=== PATIENT | male | born 1955 | race African-American/Black ===

== ENCOUNTER 2019-02-01 12:47 | Observation (INO) | payer MEDICARE, OTHER ==
[2019-02-01 13:41] LABS: ADD MAN DIFF? NO
[2019-02-01 13:43] LABS: WHITE BLOOD COUNT 10.5 10^3/ul (4.8-10.8)
[2019-02-01 13:43] LABS: BASOPHILS % 0.3 % (0.0-2.0); EOSINOPHILS # 0.1 10^3/ul (0.0-0.5); EOSINOPHILS % 0.6 % (0.0-7.0); HEMATOCRIT 32.3 % (42.0-52.0); HEMOGLOBIN 10.4 g/dl (14.0-18.0); LYMPHOCYTES # 0.6 10^3/ul (0.8-2.9); LYMPHOCYTES % 5.7 % (15.0-51.0); MEAN CORPUSCULAR HEMOGLOBIN 29.7 pg (29.0-33.0); MEAN CORPUSCULAR HGB CONC 32.2 g/dl (32.0-37.0); MEAN CORPUSCULAR VOLUME 92.3 fl (82.0-101.0); MEAN PLATELET VOLUME 10.1 fl (7.4-10.4); MONOCYTE # 0.5 10^3/ul (0.3-0.9); MONOCYTES % 4.5 % (0.0-11.0); NEUTROPHIL # 9.3 10^3/ul (1.6-7.5); NEUTROPHILS % 88.4 % (39.0-77.0); PLATELET COUNT 311 10^3/UL (140-415); RED CELL DISTRIBUTION WIDTH 14.8 % (11.5-14.5)
[2019-02-01 14:02] LABS: ALANINE AMINOTRANSFERASE 8 IU/L (13-69); ALBUMIN 4.3 g/dl (3.3-4.9); ALBUMIN/GLOBULIN RATIO 1.22; ALKALINE PHOSPHATASE 174 IU/L (42-121); ANION GAP 17 (5-13); ASPARTATE AMINO TRANSFERASE 17 IU/L (15-46); BLOOD UREA NITROGEN 67 mg/dl (7-20); CARBON DIOXIDE 23 mmol/L (21-31); CHLORIDE 100 mmol/L (97-110); CREATININE 11.18 mg/dl (0.61-1.24); Estimated GFR 6 mL/min (>60); GLUCOSE 84 mg/dl (70-220); INR 1.12; PROTIME 14.5 Sec (11.9-14.9); PT RATIO 1.1; SODIUM 140 mmol/L (135-144); TOTAL PROTEIN 7.8 g/dl (6.1-8.1)
[2019-02-01 14:03] LABS: PARTIAL THROMBOPLASTIN TIME 47.9 Sec (23.0-35.0)
[2019-02-01 14:13] LABS: TROPONIN-I < 0.012 ng/ml (0.000-0.120)
[2019-02-01] MEDS: LABETALOL HCL 20MG INJ IV (15:01)
[2019-02-01 17:20] LABS: LACTIC ACID 1.1 mmol/L (0.5-2.0)
[2019-02-01] MEDS ORDERED: DEXTROSE 50% 50 ML SYRINGE (17:24)
[2019-02-01] MEDS: DEXTROSE 50% 50 ML SYRINGE IV (17:43)
[2019-02-01] MEDS ORDERED: ONDANSETRON 4 MG INJ IV ×2 (18:00→18:30)
[2019-02-01] MEDS ORDERED: ACETAMINOPHEN 325 MG TAB PO ×3 (18:00→18:30)
[2019-02-01] MEDS ORDERED: ENALAPRIL 20 MG TAB PO (18:30)
[2019-02-01] MEDS ORDERED: ZOLPIDEM 5 MG TAB PO (18:30)
[2019-02-01] MEDS ORDERED: NACL 0.9% 3 ML SYG IV (18:30)
[2019-02-01] MEDS: BETHANECHOL 25 MG TAB PO (21:00)
[2019-02-01] MEDS: SUCRALFATE 1 GM TAB PO (21:47)
[2019-02-01] MEDS: FOLIC ACID 1 MG TAB PO (21:47)
[2019-02-01] MEDS: PANTOPRAZOLE (EC) 40 MG TAB PO (21:47)
[2019-02-02] MEDS: morphine LIQ (10 MG/5 ML) CUP PO (00:19)
[2019-02-02 08:34] LABS: ADD MAN DIFF? NO
[2019-02-02] MEDS: MULTIVIT/CA CARB/B CMPLX/FA TAB PO ×2 (08:47→09:00)
[2019-02-02] MEDS: FOLIC ACID 1 MG TAB PO ×3 (08:47→23:55)
[2019-02-02 08:48] LABS: WHITE BLOOD COUNT 7.2 10^3/ul (4.8-10.8)
[2019-02-02 08:48] LABS: BASOPHILS % 0.4 % (0.0-2.0); EOSINOPHILS # 0.1 10^3/ul (0.0-0.5); EOSINOPHILS % 1.1 % (0.0-7.0); HEMATOCRIT 26.9 % (42.0-52.0); HEMOGLOBIN 8.6 g/dl (14.0-18.0); LYMPHOCYTES # 1.2 10^3/ul (0.8-2.9); LYMPHOCYTES % 16.7 % (15.0-51.0); MEAN CORPUSCULAR HEMOGLOBIN 29.1 pg (29.0-33.0); MEAN CORPUSCULAR VOLUME 90.9 fl (82.0-101.0); MEAN PLATELET VOLUME 10.7 fl (7.4-10.4); MONOCYTE # 0.7 10^3/ul (0.3-0.9); MONOCYTES % 9.4 % (0.0-11.0); NEUTROPHIL # 5.2 10^3/ul (1.6-7.5); NEUTROPHILS % 71.7 % (39.0-77.0); PLATELET COUNT 264 10^3/UL (140-415); RED BLOOD COUNT 2.96 10^6/ul (4.70-6.10); RED CELL DISTRIBUTION WIDTH 14.6 % (11.5-14.5)
[2019-02-02] MEDS: SUCRALFATE 1 GM TAB PO ×5 (08:48→23:54)
[2019-02-02] MEDS: PANTOPRAZOLE (EC) 40 MG TAB PO ×3 (08:48→23:54)
[2019-02-02] MEDS: DOCUSATE SODIUM 100 MG CAP PO ×2 (08:48→09:00)
[2019-02-02] MEDS: METOPROLOL 25 MG TAB PO (08:48)
[2019-02-02 08:52] LABS: HEMOGLOBIN A1C 5.1 % (0-5.9)
[2019-02-02] MEDS: BETHANECHOL 25 MG TAB PO ×4 (09:00→23:54)
[2019-02-02 09:21] LABS: ALANINE AMINOTRANSFERASE 17 IU/L (13-69); ALBUMIN 3.7 g/dl (3.3-4.9); ALBUMIN/GLOBULIN RATIO 1.32; ALKALINE PHOSPHATASE 129 IU/L (42-121); ANION GAP 18 (5-13); ASPARTATE AMINO TRANSFERASE 37 IU/L (15-46); BILIRUBIN,INDIRECT 0.2 mg/dl (0-1.1); BILIRUBIN,TOTAL 0.2 mg/dl (0.2-1.3); BLOOD UREA NITROGEN 74 mg/dl (7-20); CALCIUM 8.1 mg/dl (8.4-10.2); CARBON DIOXIDE 23 mmol/L (21-31); CHLORIDE 98 mmol/L (97-110); CREATININE 11.48 mg/dl (0.61-1.24); Estimated GFR 5 mL/min (>60); MAGNESIUM 2.2 mg/dl (1.7-2.5); PHOSPHORUS 5.5 mg/dl (2.5-4.9); POTASSIUM 5.3 mmol/L (3.5-5.1); SODIUM 139 mmol/L (135-144); TOTAL PROTEIN 6.5 g/dl (6.1-8.1)
[2019-02-02 09:26] LABS: GLUCOSE 37 mg/dl (70-220)
[2019-02-02] MEDS: DEXTROSE 50% 50 ML SYRINGE IV ×2 (10:15→12:10)
[2019-02-02] MEDS ORDERED: DEXTROSE 50% 50 ML SYRINGE IV (10:30)
[2019-02-02] MEDS ORDERED: GLUCOSE GEL 15 GRAM TUBE PO ×2 (10:30)
[2019-02-02] MEDS ORDERED: GLUCOSE GEL 15 GRAM TUBE BUCCAL (10:30)
[2019-02-02] MEDS ORDERED: GLUCAGON 1 MG INJ IM (10:30)
[2019-02-02 16:45] LABS: HEPATITIS B SURFACE ANTIGEN NEGATIVE (NEGATIVE)
[2019-02-02 17:06] LABS: HEPATITIS B SURFACE ANTIBODY NEGATIVE (NEGATIVE)
[2019-02-02] MEDS: HALOPERIDOL 5 MG INJ IM (19:03)
[2019-02-02] MEDS: HEPARIN 1000 UNITS/ML 10 ML INJ CATHETER (22:58)
[2019-02-03 05:57] LABS: ADD MAN DIFF? NO
[2019-02-03 06:00] LABS: WHITE BLOOD COUNT 6.2 10^3/ul (4.8-10.8)
[2019-02-03 06:00] LABS: BASOPHILS % 0.5 % (0.0-2.0); EOSINOPHILS # 0.1 10^3/ul (0.0-0.5); EOSINOPHILS % 1.5 % (0.0-7.0); HEMATOCRIT 29.8 % (42.0-52.0); HEMOGLOBIN 9.7 g/dl (14.0-18.0); LYMPHOCYTES % 15.7 % (15.0-51.0); MEAN CORPUSCULAR HEMOGLOBIN 29.7 pg (29.0-33.0); MEAN CORPUSCULAR HGB CONC 32.6 g/dl (32.0-37.0); MEAN CORPUSCULAR VOLUME 91.1 fl (82.0-101.0); MEAN PLATELET VOLUME 9.7 fl (7.4-10.4); MONOCYTE # 0.8 10^3/ul (0.3-0.9); MONOCYTES % 12.1 % (0.0-11.0); NEUTROPHIL # 4.3 10^3/ul (1.6-7.5); NEUTROPHILS % 69.7 % (39.0-77.0); PLATELET COUNT 275 10^3/UL (140-415); RED BLOOD COUNT 3.27 10^6/ul (4.70-6.10); RED CELL DISTRIBUTION WIDTH 14.6 % (11.5-14.5)
[2019-02-03 06:20] LABS: ANION GAP 14 (5-13); BLOOD UREA NITROGEN 35 mg/dl (7-20); CALCIUM 9.3 mg/dl (8.4-10.2); CARBON DIOXIDE 27 mmol/L (21-31); CHLORIDE 98 mmol/L (97-110); CREATININE 7.88 mg/dl (0.61-1.24); Estimated GFR 8 mL/min (>60); GLUCOSE 105 mg/dl (70-220); MAGNESIUM 2.2 mg/dl (1.7-2.5); PHOSPHORUS 4.9 mg/dl (2.5-4.9); SODIUM 139 mmol/L (135-144)
[2019-02-03] MEDS: ACCU-CHEK XX ×4 (07:30→21:00)
[2019-02-03] MEDS: SUCRALFATE 1 GM TAB PO ×5 (07:30→23:23)
[2019-02-03] MEDS: DOCUSATE SODIUM 100 MG CAP PO ×3 (08:11→11:12)
[2019-02-03] MEDS: MULTIVIT/CA CARB/B CMPLX/FA TAB PO ×2 (08:11→09:00)
[2019-02-03] MEDS: BETHANECHOL 25 MG TAB PO ×5 (08:11→23:23)
[2019-02-03] MEDS: PANTOPRAZOLE (EC) 40 MG TAB PO ×3 (08:11→23:23)
[2019-02-03] MEDS: FOLIC ACID 1 MG TAB PO ×3 (08:11→23:23)
[2019-02-03] MEDS: METOPROLOL 25 MG TAB PO (08:12)
[2019-02-03] MEDS: BISACODYL 10 MG SUPP PR (14:29)
[2019-02-03] MEDS: HEPARIN 1000 UNITS/ML 10 ML INJ CATHETER (22:46)
[2019-02-04] MEDS: ACCU-CHEK XX ×2 (07:30→11:30)
[2019-02-04] MEDS: SUCRALFATE 1 GM TAB PO ×2 (08:32→11:42)
[2019-02-04] MEDS: PANTOPRAZOLE (EC) 40 MG TAB PO (08:32)
[2019-02-04] MEDS: FOLIC ACID 1 MG TAB PO (08:32)
[2019-02-04] MEDS: MULTIVIT/CA CARB/B CMPLX/FA TAB PO (08:32)
[2019-02-04] MEDS: DOCUSATE SODIUM 100 MG CAP PO (08:32)
[2019-02-04] MEDS: METOPROLOL 25 MG TAB PO (08:33)
[2019-02-04] MEDS: BETHANECHOL 25 MG TAB PO ×3 (08:33→16:42)
[2019-02-04] MEDS: morphine LIQ (10 MG/5 ML) CUP PO (11:42)
[2019-02-04] MEDS: BISACODYL 10 MG SUPP PR (11:52)
== END 2019-02-04 17:22 ==
LOC: E/R 12:47 → PP2 02-02 19:02
DX: E11.649 Type 2 diabetes mellitus with hypoglycemia without coma (principal); I12.0 Hypertensive chronic kidney disease with stage 5 chronic kidney disease or end stage renal disease; E11.22 Type 2 diabetes mellitus with diabetic chronic kidney disease; N18.6 End stage renal disease; Z99.2 Dependence on renal dialysis; Z79.4 Long term (current) use of insulin; D64.9 Anemia, unspecified; G93.40 Encephalopathy, unspecified; M89.8X9 Other specified disorders of bone, unspecified site
CPT/HCPCS: 36415; 71045; 80048; 80053; 82962; 83036; 83605; 83735; 84100; 84484; 85025; 85610; 85730; 86706; 87040-91; 87081; 87340; 90935; 93005; 96374; 96375; 99217; 99285-25; G0378

== ENCOUNTER 2019-05-18 17:59 | Emergency (ER) | payer MEDICARE, OTHER ==
[2019-05-18] MEDS: TRANEXAMIC ACID 1GM/100ML(PMX) 100 ML IV ×2 (19:00→19:53)
[2019-05-18] MEDS: DESMOPRESSIN 21 MCG in SOD CHLORIDE 0.9% 50 ML IVPB (19:35)
[2019-05-18] MEDS: TRANEXAMIC ACID 1,000 MG/10 ML VIAL TOP (20:04)
[2019-05-18] MEDS: LIDOCAINE 1% (MDV) 20 ML INJ SC (21:36)
[2019-05-19] MEDS: AMLODIPINE 5 MG TAB PO (00:39)
== END 2019-05-19 00:40 | disposition home or self-care (01) ==
LOC: E/R 05-19 00:40
DX: T82.838A Hemorrhage due to vascular prosthetic devices, implants and grafts, initial encounter (principal); I12.0 Hypertensive chronic kidney disease with stage 5 chronic kidney disease or end stage renal disease; N18.6 End stage renal disease; E11.22 Type 2 diabetes mellitus with diabetic chronic kidney disease; Y71.2 Prosthetic and other implants, materials and accessory cardiovascular devices associated with adverse incidents; Z79.4 Long term (current) use of insulin; Z99.2 Dependence on renal dialysis
CPT/HCPCS: 96374; 99284-25

== ENCOUNTER 2019-06-18 06:22 | Inpatient (IN) | payer MEDICARE, OTHER ==
[2019-06-18] MEDS: ACETAMINOPHEN 650MG/20.3ML CUP NGT (06:42)
[2019-06-18] MEDS: CEFEPIME 2GM/50 ML (PMX) 50 ML IVPB (06:42)
[2019-06-18] MEDS: SODIUM CHLORIDE 0.9% 1L BAG IV* (06:42)
[2019-06-18] MEDS: NORepinephrine 8MG/250 ML (PMX 250 ML IV (06:52)
[2019-06-18] MEDS ORDERED: NORepinephrine 8MG/250 ML (PMX 250 ML (06:53)
[2019-06-18] MEDS: ETOMIDATE 20 MG INJ IV (07:00)
[2019-06-18] MEDS ORDERED: ETOMIDATE 20 MG INJ (07:00)
[2019-06-18] MEDS: FENTAnyl (DRIP) 1000 mcg/100mL 100 ML IV (07:00)
[2019-06-18] MEDS: ROCURONIUM 50 MG INJ IV (07:00)
[2019-06-18] MEDS: SOD CHLORIDE 0.9% 0 ML IV (07:09)
[2019-06-18] MEDS: VANCOMYCIN 1 GM (PMX) 250 ML IVPB (07:23)
[2019-06-18] MEDS: MIDAZOLAM (DRIP) 50 mg/50 mL 50 ML IV ×2 (08:18→22:27)
[2019-06-18] MEDS: PANTOPRAZOLE IV 80 MG in SOD CHLORIDE 0.9% 100 ML IVPB (08:29)
[2019-06-18] MEDS: PANTOPRAZOLE IV 80 MG in SOD CHLORIDE 0.9% 100 ML IV (08:56)
[2019-06-18] MEDS: DESMOPRESSIN 20 MCG in SOD CHLORIDE 0.9% 50 ML IVPB (09:00)
[2019-06-18] MEDS ORDERED: ONDANSETRON 4 MG INJ IV (10:30)
[2019-06-18] MEDS ORDERED: VANCOMYCIN IV PER PHARMACY XX (10:30)
[2019-06-18] MEDS: SOD CHLORIDE 0.9% 1,000 ML IV (12:13)
[2019-06-18] MEDS: INSULIN ASPART [NOVOLOG] 3 ML PEN SC ×3 (13:00→20:50)
[2019-06-18] MEDS: SEVELAMER CARBONATE 0.8 GM PKT GTB ×2 (13:35→21:04)
[2019-06-18] MEDS: VANCOMYCIN 500 MG (PMX) 100 ML IVPB (13:35)
[2019-06-18] MEDS ORDERED: GLUCOSE GEL 15 GRAM TUBE BUCCAL (14:00)
[2019-06-18] MEDS ORDERED: PIPER-TAZO 2.25 GM (PMX) 50 ML IVPB (14:00)
[2019-06-18] MEDS ORDERED: GLUCOSE GEL 15 GRAM TUBE PO ×2 (14:00)
[2019-06-18] MEDS ORDERED: GLUCAGON 1 MG INJ IM (14:00)
[2019-06-18] MEDS ORDERED: DEXTROSE 50% 50 ML SYRINGE IV (14:00)
[2019-06-18] MEDS: PANTOPRAZOLE 40 MG INJ IV (18:00)
[2019-06-18] MEDS: FERROUS SULFATE 60 MG/ML 5ML CUP PEG (21:05)
[2019-06-18] MEDS: DOCUSATE SODIUM 100 MG CAP PO (21:05)
[2019-06-18] MEDS: FOLIC ACID 1 MG TAB PEG (21:05)
[2019-06-18] MEDS: ATORVASTATIN 80 MG TAB PEG (21:05)
[2019-06-18] MEDS: THIAMINE 100 MG TAB PEG (21:05)
[2019-06-18] MEDS: CYANOCOBALAMIN 500 MCG TAB PEG (21:05)
[2019-06-19] MEDS: INSULIN ASPART [NOVOLOG] 3 ML PEN SC ×6 (01:00→20:48)
[2019-06-19] MEDS: SOD CHLORIDE 0.9% 1,000 ML IV (01:35)
[2019-06-19] MEDS: ACCU-CHEK XX (02:00)
[2019-06-19] MEDS: PANTOPRAZOLE 40 MG INJ IV ×2 (05:03→17:12)
[2019-06-19] MEDS: CEFEPIME 1GM/50 ML (PMX) 50 ML IVPB (06:09)
[2019-06-19] MEDS: SOD CHLORIDE 0.9% 250 ML IV* (08:07)
[2019-06-19] MEDS: FERROUS SULFATE 60 MG/ML 5ML CUP PEG ×2 (08:31→20:30)
[2019-06-19] MEDS: DOCUSATE SODIUM 100 MG CAP PO ×2 (08:32→19:54)
[2019-06-19] MEDS: CYANOCOBALAMIN 500 MCG TAB PEG ×2 (08:32→20:30)
[2019-06-19] MEDS: FOLIC ACID 1 MG TAB PEG ×2 (08:32→20:30)
[2019-06-19] MEDS: THIAMINE 100 MG TAB PEG ×2 (08:32→20:30)
[2019-06-19] MEDS: SEVELAMER CARBONATE 0.8 GM PKT GTB ×3 (08:32→20:30)
[2019-06-19] MEDS: FLUCONAZOLE 100 MG/50 ML 50 ML IVPB (14:49)
[2019-06-19] MEDS: ATORVASTATIN 80 MG TAB PEG (20:30)
[2019-06-20] MEDS: INSULIN ASPART [NOVOLOG] 3 ML PEN SC ×6 (01:12→21:24)
[2019-06-20] MEDS: ACCU-CHEK XX (02:00)
[2019-06-20] MEDS: PANTOPRAZOLE 40 MG INJ IV (05:33)
[2019-06-20] MEDS: CEFEPIME 1GM/50 ML (PMX) 50 ML IVPB (07:11)
[2019-06-20] MEDS: SEVELAMER CARBONATE 0.8 GM PKT GTB ×3 (08:51→21:16)
[2019-06-20] MEDS: FERROUS SULFATE 60 MG/ML 5ML CUP PEG ×2 (08:52→21:16)
[2019-06-20] MEDS: THIAMINE 100 MG TAB PEG ×2 (08:52→21:16)
[2019-06-20] MEDS: CYANOCOBALAMIN 500 MCG TAB PEG ×2 (08:52→21:16)
[2019-06-20] MEDS: FOLIC ACID 1 MG TAB PEG ×2 (08:52→21:16)
[2019-06-20] MEDS ORDERED: SODIUM CHLORIDE 0.9% 1L BAG IV (12:30)
[2019-06-20] MEDS ORDERED: ALBUMIN HUMAN 25% 100 ML IV (12:30)
[2019-06-20] MEDS: VANCOMYCIN 1 GM 250 ML IVPB (12:50)
[2019-06-20] MEDS ORDERED: GENTAMICIN IV PER PHARMACY XX (14:30)
[2019-06-20] MEDS: PANTOPRAZOLE IV 80 MG in SOD CHLORIDE 0.9% 100 ML IV (15:29)
[2019-06-20] MEDS: FLUCONAZOLE 100 MG/50 ML 50 ML IVPB (15:30)
[2019-06-20] MEDS: SUCRALFATE (100 MG/ML) 10ML CUP GTB ×2 (17:56→21:16)
[2019-06-20] MEDS: GENTAMICIN 140 MG in DEXTROSE 5% 100 ML IVPB (17:57)
[2019-06-20] MEDS: hydrALAzine 20 MG INJ IV (18:22)
[2019-06-20] MEDS: DOCUSATE SODIUM 10 MG/ML (10ML CUP) GTB (21:00)
[2019-06-20] MEDS: ATORVASTATIN 80 MG TAB PEG (21:16)
[2019-06-21] MEDS: PANTOPRAZOLE IV 80 MG in SOD CHLORIDE 0.9% 100 ML IV ×3 (01:00→20:54)
[2019-06-21] MEDS: INSULIN ASPART [NOVOLOG] 3 ML PEN SC ×6 (01:03→20:54)
[2019-06-21] MEDS: ACCU-CHEK XX (01:06)
[2019-06-21] MEDS: morphine 2 MG INJ IV (01:07)
[2019-06-21] MEDS ORDERED: ASCORBIC ACID 500 MG TAB GTB (09:00)
[2019-06-21] MEDS: FOLIC ACID 1 MG TAB PEG ×2 (09:00→22:04)
[2019-06-21] MEDS: FERROUS SULFATE 60 MG/ML 5ML CUP PEG ×2 (09:00→22:04)
[2019-06-21] MEDS: DOCUSATE SODIUM 10 MG/ML (10ML CUP) GTB ×2 (09:00→22:04)
[2019-06-21] MEDS: SEVELAMER CARBONATE 0.8 GM PKT GTB ×3 (09:00→22:04)
[2019-06-21] MEDS: ASCORBIC ACID 500 MG TAB GTB (09:00)
[2019-06-21] MEDS: THIAMINE 100 MG TAB PEG ×2 (09:00→22:03)
[2019-06-21] MEDS: SUCRALFATE (100 MG/ML) 10ML CUP GTB ×4 (09:00→22:04)
[2019-06-21] MEDS: CYANOCOBALAMIN 500 MCG TAB PEG ×2 (09:00→22:04)
[2019-06-21] MEDS: PROPOFOL 20 ML ×2 (14:10→15:09)
[2019-06-21] MEDS: LIDOCAINE 2% (SDV) 5 ML INJ (14:11)
[2019-06-21] MEDS: ETOMIDATE 20 MG INJ (14:11)
[2019-06-21] MEDS ORDERED: FENTAnyl 50 MCG/ML VIAL IV (15:30)
[2019-06-21] MEDS ORDERED: HYDROmorphONE 0.5 MG/0.5 ML SYG IV (15:30)
[2019-06-21] MEDS: FLUCONAZOLE 100 MG/50 ML 50 ML IVPB (15:35)
[2019-06-21] MEDS: GENTAMICIN 80 MG/NS (PMX) 50 ML IVPB (20:57)
[2019-06-21] MEDS: ATORVASTATIN 80 MG TAB PEG (22:03)
[2019-06-22] MEDS: INSULIN ASPART [NOVOLOG] 3 ML PEN SC ×6 (00:47→20:03)
[2019-06-22] MEDS: ACCU-CHEK XX (02:00)
[2019-06-22] MEDS: PANTOPRAZOLE IV 80 MG in SOD CHLORIDE 0.9% 100 ML IV ×3 (06:06→19:48)
[2019-06-22] MEDS: FOLIC ACID 1 MG TAB PEG ×2 (09:06→21:01)
[2019-06-22] MEDS: FERROUS SULFATE 60 MG/ML 5ML CUP PEG ×2 (09:06→21:00)
[2019-06-22] MEDS: ASCORBIC ACID 500 MG TAB GTB (09:06)
[2019-06-22] MEDS: SUCRALFATE (100 MG/ML) 10ML CUP GTB ×4 (09:06→21:00)
[2019-06-22] MEDS: SEVELAMER CARBONATE 0.8 GM PKT GTB ×3 (09:06→21:00)
[2019-06-22] MEDS: CYANOCOBALAMIN 500 MCG TAB PEG ×2 (09:06→21:01)
[2019-06-22] MEDS: DOCUSATE SODIUM 10 MG/ML (10ML CUP) GTB ×2 (09:06→21:00)
[2019-06-22] MEDS: hydrALAzine 20 MG INJ IV (09:39)
[2019-06-22] MEDS: FLUCONAZOLE 100 MG/50 ML 50 ML IVPB (14:34)
[2019-06-22] MEDS: morphine 2 MG INJ IV (16:24)
[2019-06-22] MEDS: ATORVASTATIN 80 MG TAB PEG (21:00)
[2019-06-22] MEDS: THIAMINE 100 MG TAB PEG (21:01)
[2019-06-23] MEDS: INSULIN ASPART [NOVOLOG] 3 ML PEN SC ×6 (01:00→20:57)
[2019-06-23] MEDS: ACCU-CHEK XX (01:21)
[2019-06-23] MEDS: DEXTROSE 50% 50 ML SYRINGE IV (04:43)
[2019-06-23] MEDS: PANTOPRAZOLE IV 80 MG in SOD CHLORIDE 0.9% 100 ML IV ×2 (04:48→16:05)
[2019-06-23] MEDS: hydrALAzine 20 MG INJ IV (08:03)
[2019-06-23] MEDS: DOCUSATE SODIUM 10 MG/ML (10ML CUP) GTB ×2 (08:28→20:42)
[2019-06-23] MEDS: ASCORBIC ACID 500 MG TAB GTB (08:29)
[2019-06-23] MEDS: SEVELAMER CARBONATE 0.8 GM PKT GTB ×3 (08:29→20:42)
[2019-06-23] MEDS: SUCRALFATE (100 MG/ML) 10ML CUP GTB ×4 (08:29→20:42)
[2019-06-23] MEDS: CYANOCOBALAMIN 500 MCG TAB PEG ×2 (08:29→20:43)
[2019-06-23] MEDS: FOLIC ACID 1 MG TAB PEG ×2 (08:29→20:43)
[2019-06-23] MEDS: FERROUS SULFATE 60 MG/ML 5ML CUP PEG ×2 (08:29→20:42)
[2019-06-23] MEDS: LOSARTAN 25 MG TAB PO (08:30)
[2019-06-23] MEDS: ASPIRIN 81 MG TAB GTB (12:47)
[2019-06-23] MEDS: FLUCONAZOLE 100 MG/50 ML 50 ML IVPB (14:13)
[2019-06-23] MEDS: ACETAMINOPHEN 650MG/20.3ML CUP PO (20:42)
[2019-06-23] MEDS: THIAMINE 100 MG TAB PEG (20:43)
[2019-06-23] MEDS: ATORVASTATIN 80 MG TAB PEG (20:43)
[2019-06-24] MEDS: ACCU-CHEK XX (02:00)
[2019-06-24] MEDS: PANTOPRAZOLE IV 80 MG in SOD CHLORIDE 0.9% 100 ML IV ×3 (02:42→17:39)
[2019-06-24] MEDS: INSULIN ASPART [NOVOLOG] 3 ML PEN SC ×4 (02:43→17:17)
[2019-06-24] MEDS: hydrALAzine 20 MG INJ IV ×2 (05:48→21:26)
[2019-06-24] MEDS: CYANOCOBALAMIN 500 MCG TAB PEG ×2 (08:51→21:24)
[2019-06-24] MEDS: SUCRALFATE (100 MG/ML) 10ML CUP GTB ×4 (08:51→21:24)
[2019-06-24] MEDS: DOCUSATE SODIUM 10 MG/ML (10ML CUP) GTB ×2 (08:51→21:23)
[2019-06-24] MEDS: FOLIC ACID 1 MG TAB PEG ×2 (08:51→21:24)
[2019-06-24] MEDS: ASPIRIN 81 MG TAB GTB (08:51)
[2019-06-24] MEDS: FERROUS SULFATE 60 MG/ML 5ML CUP PEG ×2 (08:51→21:24)
[2019-06-24] MEDS: ASCORBIC ACID 500 MG TAB GTB (08:51)
[2019-06-24] MEDS: SEVELAMER CARBONATE 0.8 GM PKT GTB ×3 (08:52→21:24)
[2019-06-24] MEDS: LOSARTAN 25 MG TAB PO ×2 (12:47→22:22)
[2019-06-24] MEDS: FLUCONAZOLE 100 MG/50 ML 50 ML IVPB (14:24)
[2019-06-24] MEDS: DEXTROSE 5%-0.45% NACL 1,000 ML IV ×2 (17:27→22:22)
[2019-06-24] MEDS: VALPROIC ACID LIQUID CUP 250 MG/5 ML CUP GTB (21:23)
[2019-06-24] MEDS: ATORVASTATIN 80 MG TAB PEG (21:24)
[2019-06-24] MEDS: THIAMINE 100 MG TAB PEG (21:24)
[2019-06-25] MEDS: INSULIN ASPART [NOVOLOG] 3 ML PEN SC ×5 (00:30→23:46)
[2019-06-25] MEDS: ACCU-CHEK XX (02:00)
[2019-06-25] MEDS: PANTOPRAZOLE IV 80 MG in SOD CHLORIDE 0.9% 100 ML IV ×3 (05:27→15:47)
[2019-06-25] MEDS: VALPROIC ACID LIQUID CUP 250 MG/5 ML CUP GTB ×3 (09:25→22:56)
[2019-06-25] MEDS: CYANOCOBALAMIN 500 MCG TAB PEG ×2 (09:25→22:49)
[2019-06-25] MEDS: SEVELAMER CARBONATE 0.8 GM PKT GTB ×3 (09:25→22:50)
[2019-06-25] MEDS: DOCUSATE SODIUM 10 MG/ML (10ML CUP) GTB ×2 (09:25→22:50)
[2019-06-25] MEDS: FOLIC ACID 1 MG TAB PEG ×2 (09:26→22:49)
[2019-06-25] MEDS: FERROUS SULFATE 60 MG/ML 5ML CUP PEG ×2 (09:26→22:49)
[2019-06-25] MEDS: ASCORBIC ACID 500 MG TAB GTB (09:26)
[2019-06-25] MEDS: SUCRALFATE (100 MG/ML) 10ML CUP GTB ×4 (09:26→22:50)
[2019-06-25] MEDS: THIAMINE 100 MG TAB GTB (09:26)
[2019-06-25] MEDS: LOSARTAN 25 MG TAB PO ×2 (09:27→22:51)
[2019-06-25] MEDS: DEXTROSE 5%-0.45% NACL 1,000 ML IV ×2 (17:09→23:14)
[2019-06-25] MEDS ORDERED: ALBUTEROL/IPRATROPIUM (NEB) 3 ML AMP HHN (17:30)
[2019-06-25] MEDS: ALBUTEROL/IPRATROPIUM (NEB) 3 ML AMP HHN (20:16)
[2019-06-25] MEDS: hydrALAzine 20 MG INJ IV ×2 (20:28→23:56)
[2019-06-25] MEDS: ATORVASTATIN 80 MG TAB PEG (22:49)
[2019-06-25] MEDS: THIAMINE 100 MG TAB PEG (22:54)
[2019-06-26] MEDS ORDERED: LEVALBUTEROL (NEB) 0.63 MG/3 ML AMP HHN (00:30)
[2019-06-26] MEDS: PANTOPRAZOLE IV 80 MG in SOD CHLORIDE 0.9% 100 ML IV ×3 (00:30→10:56)
[2019-06-26] MEDS ORDERED: IPRATROPIUM (NEB) 0.5 MG/2.5 ML AMP HHN (00:30)
[2019-06-26] MEDS: LEVALBUTEROL (NEB) 0.63 MG/3 ML AMP HHN ×4 (01:34→19:56)
[2019-06-26] MEDS: IPRATROPIUM (NEB) 0.5 MG/2.5 ML AMP HHN ×4 (01:34→19:55)
[2019-06-26] MEDS: ACCU-CHEK XX (02:00)
[2019-06-26] MEDS: GENTAMICIN 80 MG/NS (PMX) 50 ML IVPB ×2 (02:22→16:42)
[2019-06-26] MEDS: INSULIN ASPART [NOVOLOG] 3 ML PEN SC ×3 (05:50→17:46)
[2019-06-26] MEDS: hydrALAzine 20 MG INJ IV ×3 (05:51→20:16)
[2019-06-26] MEDS: LOSARTAN 25 MG TAB PO ×2 (09:00→21:00)
[2019-06-26] MEDS: ACETAMINOPHEN 650MG/20.3ML CUP PO (09:02)
[2019-06-26] MEDS: SEVELAMER CARBONATE 0.8 GM PKT GTB ×3 (09:03→21:00)
[2019-06-26] MEDS: SUCRALFATE (100 MG/ML) 10ML CUP GTB ×4 (09:03→21:00)
[2019-06-26] MEDS: FOLIC ACID 1 MG TAB PEG ×2 (09:03→21:00)
[2019-06-26] MEDS: VALPROIC ACID LIQUID CUP 250 MG/5 ML CUP GTB ×3 (09:03→22:59)
[2019-06-26] MEDS: CYANOCOBALAMIN 500 MCG TAB PEG ×2 (09:03→21:00)
[2019-06-26] MEDS: DOCUSATE SODIUM 10 MG/ML (10ML CUP) GTB ×2 (09:03→21:00)
[2019-06-26] MEDS: ASCORBIC ACID 500 MG TAB GTB (09:03)
[2019-06-26] MEDS: THIAMINE 100 MG TAB GTB (09:03)
[2019-06-26] MEDS: FERROUS SULFATE 60 MG/ML 5ML CUP PEG ×2 (09:03→21:00)
[2019-06-26] MEDS: morphine 2 MG INJ IV (12:33)
[2019-06-26] MEDS: DEXTROSE 5%-0.45% NACL 1,000 ML IV (13:44)
[2019-06-26] MEDS: PANTOPRAZOLE 40 MG INJ IV (17:43)
[2019-06-26] MEDS: THIAMINE 100 MG TAB PEG (21:00)
[2019-06-26] MEDS: ATORVASTATIN 80 MG TAB PEG (21:00)
[2019-06-27] MEDS: IPRATROPIUM (NEB) 0.5 MG/2.5 ML AMP HHN ×4 (01:53→20:11)
[2019-06-27] MEDS: LEVALBUTEROL (NEB) 0.63 MG/3 ML AMP HHN ×4 (01:53→20:11)
[2019-06-27] MEDS: ACCU-CHEK XX (02:00)
[2019-06-27] MEDS: INSULIN ASPART [NOVOLOG] 3 ML PEN SC ×5 (06:00→21:00)
[2019-06-27] MEDS: PANTOPRAZOLE 40 MG INJ IV ×2 (06:07→18:16)
[2019-06-27] MEDS ORDERED: ACETAMINOPHEN 650 MG SUPP PR (07:00)
[2019-06-27] MEDS: VALPROIC ACID LIQUID CUP 250 MG/5 ML CUP GTB ×3 (08:06→21:00)
[2019-06-27] MEDS: DOCUSATE SODIUM 10 MG/ML (10ML CUP) GTB ×2 (08:06→21:00)
[2019-06-27] MEDS: SUCRALFATE (100 MG/ML) 10ML CUP GTB ×4 (08:06→21:00)
[2019-06-27] MEDS: THIAMINE 100 MG TAB GTB (08:07)
[2019-06-27] MEDS: LOSARTAN 25 MG TAB PO ×2 (08:07→21:00)
[2019-06-27] MEDS: SEVELAMER CARBONATE 0.8 GM PKT GTB ×3 (08:07→21:00)
[2019-06-27] MEDS: ASCORBIC ACID 500 MG TAB GTB (08:07)
[2019-06-27] MEDS: LEVETIRACETAM (100 MG/ML) 5ML CUP GTB ×2 (08:07→21:00)
[2019-06-27] MEDS: FERROUS SULFATE 60 MG/ML 5ML CUP PEG ×2 (08:08→21:00)
[2019-06-27] MEDS: FOLIC ACID 1 MG TAB PEG ×2 (08:08→21:00)
[2019-06-27] MEDS: CYANOCOBALAMIN 500 MCG TAB PEG ×2 (08:08→21:00)
[2019-06-27] MEDS: VALPROATE INJ 1,000 MG in SOD CHLORIDE 0.9% 100 ML IVPB (08:12)
[2019-06-27] MEDS: LABETALOL HCL 20MG INJ IV (08:12)
[2019-06-27] MEDS: morphine 2 MG INJ IV ×2 (08:22→19:02)
[2019-06-27] MEDS: hydrALAzine 20 MG INJ IV (08:22)
[2019-06-27] MEDS: SOD CHLORIDE 0.9% 100 ML ×2 (09:55→15:59)
[2019-06-27] MEDS: IOHEXOL 100 ML ×2 (09:56→09:57)
[2019-06-27] MEDS: DEXTROSE 5%-0.45% NACL 1,000 ML IV (10:56)
[2019-06-27] MEDS: IOHEXOL 14.3 MG(I)/ML (ADULT) BTL PO (12:30)
[2019-06-27] MEDS ORDERED: CHLORPROMAZINE 25 MG TAB PO (13:30)
[2019-06-27] MEDS: IODIXANOL LOCM 100 ML BTL (15:59)
[2019-06-27] MEDS: THIAMINE 100 MG TAB PEG (21:00)
[2019-06-27] MEDS: ATORVASTATIN 80 MG TAB PEG (21:00)
[2019-06-28] MEDS: INSULIN ASPART [NOVOLOG] 3 ML PEN SC ×6 (01:00→21:00)
[2019-06-28] MEDS: IPRATROPIUM (NEB) 0.5 MG/2.5 ML AMP HHN ×4 (01:40→19:34)
[2019-06-28] MEDS: LEVALBUTEROL (NEB) 0.63 MG/3 ML AMP HHN ×4 (01:40→19:34)
[2019-06-28] MEDS: ACCU-CHEK XX (02:00)
[2019-06-28] MEDS: PANTOPRAZOLE 40 MG INJ IV ×2 (06:10→18:01)
[2019-06-28] MEDS: LOSARTAN 25 MG TAB PO ×2 (09:00→18:03)
[2019-06-28] MEDS: SEVELAMER CARBONATE 0.8 GM PKT GTB (09:00)
[2019-06-28] MEDS: BARIUM SULFATE 135 ML (E-Z HD) PO (09:46)
[2019-06-28] MEDS ORDERED: ASPIRIN 81 MG TAB GTB (10:00)
[2019-06-28] MEDS: LEVETIRACETAM 500 MG (PMX) 100 ML IVPB ×2 (10:38→21:29)
[2019-06-28] MEDS: VALPROATE IVPB ×2 (10:38→21:29)
[2019-06-28] MEDS: DEXTROSE 5% IVPB ×2 (10:38→21:29)
[2019-06-28] MEDS: METOCLOPRAMIDE 10 MG INJ IV ×2 (11:05→18:02)
[2019-06-28] MEDS: SOD CHLORIDE 0.9% 250 ML IV ×2 (12:00→12:46)
[2019-06-28] MEDS: SUCRALFATE (100 MG/ML) 10ML CUP PO ×3 (13:00→21:20)
[2019-06-28] MEDS: SEVELAMER CARBONATE 0.8 GM PKT PO ×2 (13:00→21:21)
[2019-06-28] MEDS: DOCUSATE SODIUM 10 MG/ML (10ML CUP) PO (21:20)
[2019-06-28] MEDS: ATORVASTATIN 80 MG TAB PO (21:21)
[2019-06-28] MEDS: POLYETHYLENE GLYCOL 17 GM PACKET PO (21:21)
[2019-06-28] MEDS: GENTAMICIN 80 MG/NS (PMX) 50 ML IVPB (21:36)
[2019-06-29] MEDS: METOCLOPRAMIDE 10 MG INJ IV ×4 (00:31→18:26)
[2019-06-29] MEDS: INSULIN ASPART [NOVOLOG] 3 ML PEN SC ×6 (00:31→21:33)
[2019-06-29] MEDS: ACCU-CHEK XX (01:13)
[2019-06-29] MEDS: IPRATROPIUM (NEB) 0.5 MG/2.5 ML AMP HHN ×4 (02:29→20:38)
[2019-06-29] MEDS: LEVALBUTEROL (NEB) 0.63 MG/3 ML AMP HHN ×4 (02:29→20:38)
[2019-06-29] MEDS: PANTOPRAZOLE 40 MG INJ IV ×2 (05:15→18:27)
[2019-06-29] MEDS: DEXTROSE 5% IVPB ×3 (05:15→21:30)
[2019-06-29] MEDS: VALPROATE IVPB ×3 (05:15→21:30)
[2019-06-29] MEDS: SUCRALFATE (100 MG/ML) 10ML CUP PO ×4 (09:17→21:29)
[2019-06-29] MEDS: LEVETIRACETAM 500 MG (PMX) 100 ML IVPB ×2 (09:18→21:24)
[2019-06-29] MEDS: SEVELAMER CARBONATE 0.8 GM PKT PO ×3 (09:18→21:28)
[2019-06-29] MEDS: ASCORBIC ACID 500 MG TAB PO (09:18)
[2019-06-29] MEDS: DOCUSATE SODIUM 10 MG/ML (10ML CUP) PO ×2 (09:19→21:29)
[2019-06-29] MEDS: ASPIRIN 81 MG TAB PO (09:19)
[2019-06-29] MEDS: LOSARTAN 25 MG TAB PO ×2 (09:19→21:29)
[2019-06-29] MEDS: SOD CHLORIDE 0.9% 250 ML IVPB (09:35)
[2019-06-29] MEDS: hydrALAzine 20 MG INJ IV ×2 (12:16→18:22)
[2019-06-29] MEDS: ATORVASTATIN 80 MG TAB PO (21:28)
[2019-06-29] MEDS: POLYETHYLENE GLYCOL 17 GM PACKET PO (21:29)
[2019-06-30] MEDS: METOCLOPRAMIDE 10 MG INJ IV ×5 (00:12→22:15)
[2019-06-30] MEDS: INSULIN ASPART [NOVOLOG] 3 ML PEN SC ×6 (01:00→21:00)
[2019-06-30] MEDS: LEVALBUTEROL (NEB) 0.63 MG/3 ML AMP HHN ×3 (02:11→13:08)
[2019-06-30] MEDS: IPRATROPIUM (NEB) 0.5 MG/2.5 ML AMP HHN ×4 (02:11→20:09)
[2019-06-30] MEDS: ACCU-CHEK XX (02:27)
[2019-06-30] MEDS: hydrALAzine 20 MG INJ IV ×3 (04:26→17:25)
[2019-06-30] MEDS: PANTOPRAZOLE 40 MG INJ IV ×2 (05:42→17:22)
[2019-06-30] MEDS: DEXTROSE 5% IVPB ×3 (05:44→22:04)
[2019-06-30] MEDS: VALPROATE IVPB ×3 (05:44→22:04)
[2019-06-30] MEDS: SEVELAMER CARBONATE 0.8 GM PKT PO ×3 (08:19→22:04)
[2019-06-30] MEDS: LEVETIRACETAM 500 MG (PMX) 100 ML IVPB ×2 (08:19→22:05)
[2019-06-30] MEDS: DOCUSATE SODIUM 10 MG/ML (10ML CUP) PO ×2 (08:19→22:04)
[2019-06-30] MEDS: LOSARTAN 25 MG TAB PO ×2 (08:20→22:05)
[2019-06-30] MEDS: SUCRALFATE (100 MG/ML) 10ML CUP PO ×4 (08:20→21:00)
[2019-06-30] MEDS: ASPIRIN 81 MG TAB PO (08:20)
[2019-06-30] MEDS: ASCORBIC ACID 500 MG TAB PO (08:20)
[2019-06-30] MEDS: SOD CHLORIDE 0.9% 250 ML IVPB (08:21)
[2019-06-30] MEDS: morphine 2 MG INJ IV (10:01)
[2019-06-30] MEDS ORDERED: LEVALBUTEROL (NEB) 0.31 MG/3 ML AMP INH (15:00)
[2019-06-30] MEDS: CIPROFLOXACIN 200 MG/D5W IVPB 100 ML IVPB (19:03)
[2019-06-30] MEDS ORDERED: LEVALBUTEROL (NEB) 1.25 MG/0.5 ML AMP (19:36)
[2019-06-30] MEDS: LEVALBUTEROL (NEB) 0.31 MG/3 ML AMP INH (20:09)
[2019-06-30] MEDS: ATORVASTATIN 80 MG TAB PO (22:04)
[2019-06-30] MEDS: POLYETHYLENE GLYCOL 17 GM PACKET PO (22:04)
[2019-07-01] MEDS: hydrALAzine 20 MG INJ IV ×2 (00:46→15:59)
[2019-07-01] MEDS: INSULIN ASPART [NOVOLOG] 3 ML PEN SC ×6 (00:51→21:00)
[2019-07-01] MEDS: ACCU-CHEK XX (02:00)
[2019-07-01] MEDS: LEVALBUTEROL (NEB) 0.31 MG/3 ML AMP INH ×5 (02:30→20:40)
[2019-07-01] MEDS: IPRATROPIUM (NEB) 0.5 MG/2.5 ML AMP HHN ×4 (02:30→20:39)
[2019-07-01] MEDS: PANTOPRAZOLE 40 MG INJ IV ×2 (05:18→17:02)
[2019-07-01] MEDS: METOCLOPRAMIDE 10 MG INJ IV ×2 (05:18→16:56)
[2019-07-01] MEDS: DEXTROSE 5% IVPB ×3 (05:26→22:00)
[2019-07-01] MEDS: VALPROATE IVPB ×3 (05:26→22:00)
[2019-07-01] MEDS: SEVELAMER CARBONATE 0.8 GM PKT PO ×3 (08:50→23:12)
[2019-07-01] MEDS: DOCUSATE SODIUM 10 MG/ML (10ML CUP) PO ×2 (08:50→23:11)
[2019-07-01] MEDS: LOSARTAN 25 MG TAB PO ×2 (08:50→23:12)
[2019-07-01] MEDS: ASCORBIC ACID 500 MG TAB PO (08:50)
[2019-07-01] MEDS: ASPIRIN 81 MG TAB PO (08:50)
[2019-07-01] MEDS: LEVETIRACETAM 500 MG (PMX) 100 ML IVPB ×2 (08:57→23:12)
[2019-07-01] MEDS: SUCRALFATE (100 MG/ML) 10ML CUP PO ×4 (09:00→23:11)
[2019-07-01] MEDS: GENTAMICIN 80 MG/NS (PMX) 50 ML IVPB (15:33)
[2019-07-01] MEDS: CIPROFLOXACIN 200 MG/D5W IVPB 100 ML IVPB (17:44)
[2019-07-01] MEDS: POLYETHYLENE GLYCOL 17 GM PACKET PO (23:11)
[2019-07-01] MEDS: ATORVASTATIN 80 MG TAB PO (23:11)
[2019-07-02] MEDS: INSULIN ASPART [NOVOLOG] 3 ML PEN SC ×6 (01:00→21:15)
[2019-07-02] MEDS: ACCU-CHEK XX (01:18)
[2019-07-02] MEDS: LEVALBUTEROL (NEB) 0.31 MG/3 ML AMP INH ×4 (01:59→20:30)
[2019-07-02] MEDS: IPRATROPIUM (NEB) 0.5 MG/2.5 ML AMP HHN ×4 (01:59→20:30)
[2019-07-02] MEDS: VALPROATE IVPB ×3 (06:34→22:05)
[2019-07-02] MEDS: DEXTROSE 5% IVPB ×3 (06:34→22:05)
[2019-07-02] MEDS: PANTOPRAZOLE 40 MG INJ IV ×2 (06:34→18:22)
[2019-07-02] MEDS: SOD CHLORIDE 0.9% 250 ML IV* (07:19)
[2019-07-02] MEDS: SEVELAMER CARBONATE 0.8 GM PKT PO ×3 (10:13→21:02)
[2019-07-02] MEDS: LEVETIRACETAM 500 MG (PMX) 100 ML IVPB ×2 (10:13→21:03)
[2019-07-02] MEDS: ASPIRIN 81 MG TAB PO (10:14)
[2019-07-02] MEDS: LOSARTAN 25 MG TAB PO ×2 (10:14→21:03)
[2019-07-02] MEDS: SUCRALFATE (100 MG/ML) 10ML CUP PO ×4 (10:14→21:02)
[2019-07-02] MEDS: DOCUSATE SODIUM 10 MG/ML (10ML CUP) PO ×2 (10:14→21:02)
[2019-07-02] MEDS: ASCORBIC ACID 500 MG TAB PO (10:14)
[2019-07-02] MEDS: CIPROFLOXACIN 200 MG/D5W IVPB 100 ML IVPB (19:07)
[2019-07-02] MEDS: ATORVASTATIN 80 MG TAB PO (21:02)
[2019-07-02] MEDS: POLYETHYLENE GLYCOL 17 GM PACKET PO (21:03)
[2019-07-03] MEDS: INSULIN ASPART [NOVOLOG] 3 ML PEN SC ×6 (01:00→20:31)
[2019-07-03] MEDS: IPRATROPIUM (NEB) 0.5 MG/2.5 ML AMP HHN ×4 (01:33→20:16)
[2019-07-03] MEDS: LEVALBUTEROL (NEB) 0.31 MG/3 ML AMP INH ×4 (01:33→20:16)
[2019-07-03] MEDS: ACCU-CHEK XX (02:00)
[2019-07-03] MEDS: hydrALAzine 20 MG INJ IV (03:52)
[2019-07-03] MEDS: VALPROATE IVPB ×3 (05:51→21:00)
[2019-07-03] MEDS: PANTOPRAZOLE 40 MG INJ IV ×2 (05:51→18:00)
[2019-07-03] MEDS: DEXTROSE 5% IVPB ×3 (05:51→21:00)
[2019-07-03] MEDS: LEVETIRACETAM 500 MG (PMX) 100 ML IVPB ×2 (09:05→20:26)
[2019-07-03] MEDS: ASCORBIC ACID 500 MG TAB PO (09:40)
[2019-07-03] MEDS: LOSARTAN 25 MG TAB PO ×2 (09:40→20:28)
[2019-07-03] MEDS: DOCUSATE SODIUM 10 MG/ML (10ML CUP) PO ×2 (09:40→20:27)
[2019-07-03] MEDS: ASPIRIN 81 MG TAB PO (09:40)
[2019-07-03] MEDS: SUCRALFATE (100 MG/ML) 10ML CUP PO ×4 (09:40→20:59)
[2019-07-03] MEDS: SEVELAMER CARBONATE 0.8 GM PKT PO ×3 (09:41→20:27)
[2019-07-03] MEDS: ONDANSETRON 4 MG INJ IV (10:16)
[2019-07-03] MEDS: GENTAMICIN 80 MG/NS (PMX) 50 ML IVPB (16:02)
[2019-07-03] MEDS: ATORVASTATIN 80 MG TAB PO (20:26)
[2019-07-03] MEDS: CIPROFLOXACIN 200 MG/D5W IVPB 100 ML IVPB (20:26)
[2019-07-03] MEDS: POLYETHYLENE GLYCOL 17 GM PACKET PO (20:27)
[2019-07-03] MEDS: PROPOFOL 20 ML (21:00)
[2019-07-04] MEDS: hydrALAzine 20 MG INJ IV (00:54)
[2019-07-04] MEDS: INSULIN ASPART [NOVOLOG] 3 ML PEN SC ×6 (01:00→21:55)
[2019-07-04] MEDS: IPRATROPIUM (NEB) 0.5 MG/2.5 ML AMP HHN ×5 (01:48→23:17)
[2019-07-04] MEDS: LEVALBUTEROL (NEB) 0.31 MG/3 ML AMP INH ×3 (01:48→14:00)
[2019-07-04] MEDS: ACCU-CHEK XX (02:00)
[2019-07-04] MEDS: PANTOPRAZOLE 40 MG INJ IV ×2 (05:26→17:16)
[2019-07-04] MEDS: DEXTROSE 5% IVPB ×3 (05:26→21:36)
[2019-07-04] MEDS: VALPROATE IVPB ×3 (05:26→21:36)
[2019-07-04] MEDS: LOSARTAN 25 MG TAB PO (09:00)
[2019-07-04] MEDS: SUCRALFATE (100 MG/ML) 10ML CUP PO ×4 (09:38→21:34)
[2019-07-04] MEDS: DOCUSATE SODIUM 10 MG/ML (10ML CUP) PO ×2 (09:38→21:00)
[2019-07-04] MEDS: SEVELAMER CARBONATE 0.8 GM PKT PO ×3 (09:38→21:42)
[2019-07-04] MEDS: ASCORBIC ACID 500 MG TAB PO (09:39)
[2019-07-04] MEDS: ASPIRIN 81 MG TAB PO (09:39)
[2019-07-04] MEDS: LEVETIRACETAM 500 MG (PMX) 100 ML IVPB ×2 (09:41→21:35)
[2019-07-04] MEDS: CIPROFLOXACIN 200 MG/D5W IVPB 100 ML IVPB (18:08)
[2019-07-04] MEDS: POLYETHYLENE GLYCOL 17 GM PACKET PO (21:00)
[2019-07-04] MEDS: ATORVASTATIN 80 MG TAB PO (21:34)
[2019-07-05] MEDS: LOSARTAN 25 MG TAB PO ×3 (01:13→21:00)
[2019-07-05] MEDS: ACCU-CHEK XX (01:23)
[2019-07-05] MEDS: INSULIN ASPART [NOVOLOG] 3 ML PEN SC ×5 (01:23→17:00)
[2019-07-05] MEDS: VALPROATE IVPB ×2 (05:31→14:00)
[2019-07-05] MEDS: PANTOPRAZOLE 40 MG INJ IV ×2 (05:31→17:53)
[2019-07-05] MEDS: DEXTROSE 5% IVPB ×2 (05:31→14:00)
[2019-07-05] MEDS: DEXTROSE 5%-0.45% NACL 1,000 ML IV (05:53)
[2019-07-05] MEDS ORDERED: PROPOFOL 40 ML (07:29)
[2019-07-05] MEDS ORDERED: LIDOCAINE 100 MG SYRINGE (07:29)
[2019-07-05] MEDS ORDERED: IPRATROPIUM (NEB) 0.5 MG/2.5 ML AMP HHN (07:30)
[2019-07-05] MEDS ORDERED: ALBUTEROL 0.083% (NEB) 2.5 MG/3 ML AMP HHN (07:30)
[2019-07-05] MEDS ORDERED: FENTAnyl 50 MCG/ML VIAL IV ×3 (07:30)
[2019-07-05] MEDS ORDERED: MEPERIDINE 25 MG INJ IV (07:30)
[2019-07-05] MEDS ORDERED: hydrALAzine 20 MG INJ IV (07:30)
[2019-07-05] MEDS ORDERED: ONDANSETRON 4 MG INJ IV (07:30)
[2019-07-05] MEDS ORDERED: LABETALOL HCL 20MG INJ IV (07:30)
[2019-07-05] MEDS ORDERED: HYDROmorphONE 1 MG/5 ML IV SYRINGE IV ×3 (07:30)
[2019-07-05] MEDS ORDERED: DIPHENHYDRAMINE 50 MG INJ IV (07:30)
[2019-07-05] MEDS ORDERED: EPHEDrine 25 MG/5 ML SYG IV (07:30)
[2019-07-05] MEDS ORDERED: OXYCODONE/ACETAMINOPHEN (5/325) TAB PO ×2 (07:30)
[2019-07-05] MEDS ORDERED: PHENYLephrine (100 MCG/ML) 10ML SYG (07:32)
[2019-07-05] MEDS: LEVALBUTEROL (NEB) 0.31 MG/3 ML AMP INH ×3 (08:00→16:30)
[2019-07-05] MEDS: IPRATROPIUM (NEB) 0.5 MG/2.5 ML AMP HHN ×4 (08:00→23:55)
[2019-07-05] MEDS: SUCRALFATE (100 MG/ML) 10ML CUP PO ×3 (09:00→17:53)
[2019-07-05] MEDS: ASPIRIN 81 MG TAB PO (09:00)
[2019-07-05] MEDS: DOCUSATE SODIUM 10 MG/ML (10ML CUP) PO ×2 (09:00→21:00)
[2019-07-05] MEDS: SEVELAMER CARBONATE 0.8 GM PKT PO ×2 (09:00→12:18)
[2019-07-05] MEDS: ASCORBIC ACID 500 MG TAB PO (09:00)
[2019-07-05] MEDS: LEVETIRACETAM 500 MG (PMX) 100 ML IVPB ×2 (09:04→21:00)
[2019-07-05] MEDS: GENTAMICIN 80 MG/NS (PMX) 50 ML IVPB (17:53)
[2019-07-05] MEDS: CIPROFLOXACIN 200 MG/D5W IVPB 100 ML IVPB (18:43)
[2019-07-05] MEDS: POLYETHYLENE GLYCOL 17 GM PACKET PO (21:00)
[2019-07-06] MEDS: SUCRALFATE (100 MG/ML) 10ML CUP PO ×5 (00:04→21:28)
[2019-07-06] MEDS: ATORVASTATIN 80 MG TAB PO ×2 (00:06→21:29)
[2019-07-06] MEDS: SEVELAMER CARBONATE 0.8 GM PKT PO ×4 (00:06→21:29)
[2019-07-06] MEDS: INSULIN ASPART [NOVOLOG] 3 ML PEN SC ×7 (00:09→21:32)
[2019-07-06] MEDS: DEXTROSE 5% IVPB ×3 (00:13→15:09)
[2019-07-06] MEDS: VALPROATE IVPB ×3 (00:13→15:09)
[2019-07-06] MEDS: ACCU-CHEK XX (02:04)
[2019-07-06] MEDS: DEXTROSE 5%-0.45% NACL 1,000 ML IV (05:49)
[2019-07-06] MEDS: PANTOPRAZOLE 40 MG INJ IV ×2 (06:15→17:22)
[2019-07-06] MEDS: LEVALBUTEROL (NEB) 0.31 MG/3 ML AMP INH ×3 (07:52→16:00)
[2019-07-06] MEDS: IPRATROPIUM (NEB) 0.5 MG/2.5 ML AMP HHN ×2 (07:52→16:00)
[2019-07-06] MEDS: DOCUSATE SODIUM 10 MG/ML (10ML CUP) PO ×2 (09:03→21:28)
[2019-07-06] MEDS: ASPIRIN 81 MG TAB PO (09:04)
[2019-07-06] MEDS: ASCORBIC ACID 500 MG TAB PO (09:04)
[2019-07-06] MEDS: LOSARTAN 25 MG TAB PO ×2 (09:04→21:29)
[2019-07-06] MEDS: LEVETIRACETAM 500 MG (PMX) 100 ML IVPB (09:19)
[2019-07-06] MEDS: CIPROFLOXACIN 200 MG/D5W IVPB 100 ML IVPB (17:38)
[2019-07-06] MEDS ORDERED: PANTOPRAZOLE (EC) 40 MG TAB PO (18:00)
[2019-07-06] MEDS: VALPROIC ACID LIQUID CUP 250 MG/5 ML CUP GTB (21:28)
[2019-07-06] MEDS: LEVETIRACETAM (100 MG/ML) 5ML CUP GTB (21:28)
[2019-07-06] MEDS: POLYETHYLENE GLYCOL 17 GM PACKET PO (21:29)
[2019-07-07] MEDS: IPRATROPIUM (NEB) 0.5 MG/2.5 ML AMP HHN ×4 (00:24→23:42)
[2019-07-07] MEDS: LEVALBUTEROL (NEB) 0.31 MG/3 ML AMP INH ×4 (00:24→23:42)
[2019-07-07] MEDS: INSULIN ASPART [NOVOLOG] 3 ML PEN SC ×6 (02:07→21:38)
[2019-07-07] MEDS: ACCU-CHEK XX (02:08)
[2019-07-07] MEDS: PANTOPRAZOLE 40 MG INJ IV ×2 (06:36→17:44)
[2019-07-07] MEDS: DOCUSATE SODIUM 10 MG/ML (10ML CUP) PO ×2 (09:14→21:35)
[2019-07-07] MEDS: LEVETIRACETAM (100 MG/ML) 5ML CUP GTB ×2 (09:14→21:35)
[2019-07-07] MEDS: ASPIRIN 81 MG TAB PO (09:14)
[2019-07-07] MEDS: ASCORBIC ACID 500 MG TAB PO (09:14)
[2019-07-07] MEDS: SUCRALFATE (100 MG/ML) 10ML CUP PO ×4 (09:14→21:35)
[2019-07-07] MEDS: VALPROIC ACID LIQUID CUP 250 MG/5 ML CUP GTB ×3 (09:14→21:35)
[2019-07-07] MEDS: LOSARTAN 25 MG TAB PO ×2 (09:15→21:35)
[2019-07-07] MEDS: SEVELAMER CARBONATE 0.8 GM PKT PO ×3 (09:15→21:36)
[2019-07-07] MEDS: CIPROFLOXACIN 200 MG/D5W IVPB 100 ML IVPB (21:33)
[2019-07-07] MEDS: LACTOBACILLUS RHAMNOSUS CAP GTB (21:34)
[2019-07-07] MEDS: ATORVASTATIN 80 MG TAB PO (21:34)
[2019-07-07] MEDS: POLYETHYLENE GLYCOL 17 GM PACKET PO (21:36)
[2019-07-08] MEDS: INSULIN ASPART [NOVOLOG] 3 ML PEN SC ×6 (01:46→20:47)
[2019-07-08] MEDS: ACCU-CHEK XX (01:49)
[2019-07-08] MEDS: PANTOPRAZOLE 40 MG INJ IV ×2 (05:48→17:26)
[2019-07-08] MEDS: LEVALBUTEROL (NEB) 0.31 MG/3 ML AMP INH ×3 (07:51→23:01)
[2019-07-08] MEDS: IPRATROPIUM (NEB) 0.5 MG/2.5 ML AMP HHN ×3 (07:51→23:01)
[2019-07-08] MEDS: LACTOBACILLUS RHAMNOSUS CAP GTB ×2 (09:00→20:44)
[2019-07-08] MEDS: LOSARTAN 25 MG TAB PO ×2 (09:00→20:45)
[2019-07-08] MEDS: ASCORBIC ACID 500 MG TAB PO (09:12)
[2019-07-08] MEDS: ASPIRIN 81 MG TAB PO (09:12)
[2019-07-08] MEDS: DOCUSATE SODIUM 10 MG/ML (10ML CUP) PO ×2 (09:14→20:44)
[2019-07-08] MEDS: VALPROIC ACID LIQUID CUP 250 MG/5 ML CUP GTB ×3 (09:14→20:44)
[2019-07-08] MEDS: SUCRALFATE (100 MG/ML) 10ML CUP PO ×4 (09:14→20:44)
[2019-07-08] MEDS: LEVETIRACETAM (100 MG/ML) 5ML CUP GTB ×2 (09:14→20:44)
[2019-07-08] MEDS: SEVELAMER CARBONATE 0.8 GM PKT PO ×3 (09:14→20:45)
[2019-07-08] MEDS: GENTAMICIN 80 MG/NS (PMX) 50 ML IVPB (17:26)
[2019-07-08] MEDS: CIPROFLOXACIN 200 MG/D5W IVPB 100 ML IVPB (17:58)
[2019-07-08] MEDS: ATORVASTATIN 80 MG TAB PO (20:44)
[2019-07-08] MEDS: POLYETHYLENE GLYCOL 17 GM PACKET PO (20:46)
[2019-07-09] MEDS: INSULIN ASPART [NOVOLOG] 3 ML PEN SC ×5 (01:16→17:33)
[2019-07-09] MEDS: ACCU-CHEK XX (02:03)
[2019-07-09] MEDS: PANTOPRAZOLE 40 MG INJ IV ×2 (05:43→17:36)
[2019-07-09] MEDS: IPRATROPIUM (NEB) 0.5 MG/2.5 ML AMP HHN ×2 (08:40→16:00)
[2019-07-09] MEDS: LEVALBUTEROL (NEB) 0.31 MG/3 ML AMP INH ×2 (08:40→16:00)
[2019-07-09] MEDS: DOCUSATE SODIUM 10 MG/ML (10ML CUP) PO (09:54)
[2019-07-09] MEDS: ASCORBIC ACID 500 MG TAB PO (09:54)
[2019-07-09] MEDS: VALPROIC ACID LIQUID CUP 250 MG/5 ML CUP GTB ×2 (09:54→12:01)
[2019-07-09] MEDS: LEVETIRACETAM (100 MG/ML) 5ML CUP GTB (09:54)
[2019-07-09] MEDS: SUCRALFATE (100 MG/ML) 10ML CUP PO ×3 (09:54→17:36)
[2019-07-09] MEDS: SEVELAMER CARBONATE 0.8 GM PKT PO ×2 (09:54→12:01)
[2019-07-09] MEDS: ASPIRIN 81 MG TAB PO (09:55)
[2019-07-09] MEDS: LACTOBACILLUS RHAMNOSUS CAP GTB (09:55)
[2019-07-09] MEDS: LOSARTAN 25 MG TAB PO (09:55)
[2019-07-09] MEDS: CIPROFLOXACIN 200 MG/D5W IVPB 100 ML IVPB (18:30)
== END 2019-07-09 18:55 | DRG 853 ==
LOC: 6WM 06-24 01:00 → E/R 06:22 → ICU 08:29
PROC: 0BH17EZ Insertion of Endotracheal Airway into Trachea, Via Natural or Artificial Opening (ICD-10-PCS; principal; 2019-06-21 13:45)
PROC: 0DW68UZ Revision of Feeding Device in Stomach, Via Natural or Artificial Opening Endoscopic (ICD-10-PCS; 2019-06-21 13:45)
PROC: 5A1955Z Respiratory Ventilation, Greater than 96 Consecutive Hours (ICD-10-PCS; 2019-06-21 13:45)
PROC: 30233N1 Transfusion of Nonautologous Red Blood Cells into Peripheral Vein, Percutaneous Approach (ICD-10-PCS; 2019-06-21 13:45)
PROC: 0DJ08ZZ Inspection of Upper Intestinal Tract, Via Natural or Artificial Opening Endoscopic (ICD-10-PCS; 2019-06-21 13:45)
PROC: 5A1D70Z Performance of Urinary Filtration, Intermittent, Less than 6 Hours Per Day (ICD-10-PCS; 2019-06-21 13:45)
PROC: 05HM33Z Insertion of Infusion Device into Right Internal Jugular Vein, Percutaneous Approach (ICD-10-PCS; 2019-06-21 13:45)
DX: A41.59 Other Gram-negative sepsis (principal); G92 Toxic encephalopathy; N18.6 End stage renal disease; J96.01 Acute respiratory failure with hypoxia; I63.81 Other cerebral infarction due to occlusion or stenosis of small artery; R65.21 Severe sepsis with septic shock; N39.0 Urinary tract infection, site not specified; D62 Acute posthemorrhagic anemia; Z99.11 Dependence on respirator [ventilator] status; K62.5 Hemorrhage of anus and rectum; E46 Unspecified protein-calorie malnutrition; E87.2 Acidosis; B37.49 Other urogenital candidiasis; E11.8 Type 2 diabetes mellitus with unspecified complications; R13.19 Other dysphagia; F03.90 Unspecified dementia, unspecified severity, without behavioral disturbance, psychotic disturbance, mood disturbance, and anxiety; D63.1 Anemia in chronic kidney disease; G40.909 Epilepsy, unspecified, not intractable, without status epilepticus; Z99.2 Dependence on renal dialysis; K21.9 Gastro-esophageal reflux disease without esophagitis; E78.5 Hyperlipidemia, unspecified; D64.9 Anemia, unspecified; K80.20 Calculus of gallbladder without cholecystitis without obstruction; Z79.4 Long term (current) use of insulin; R62.7 Adult failure to thrive; Z68.23 Body mass index [BMI] 23.0-23.9, adult; E83.39 Other disorders of phosphorus metabolism; I73.9 Peripheral vascular disease, unspecified; I12.9 Hypertensive chronic kidney disease with stage 1 through stage 4 chronic kidney disease, or unspecified chronic kidney disease
CPT/HCPCS: 31500; 36415; 36430; 36600; 43762; 70450; 70498; 70551; 71045; 71275; 72156; 72157; 72158; 74176; 74177; 74230; 76705; 76942; 78226; 78306; 78806; 80048; 80053; 80061; 80076; 80164; 80202; 81001; 82140; 82550; 82553; 82607; 82746; 82803; 82962; 83036; 83605; 83735; 84100; 84155; 84165; 84443; 84484; 85014; 85018; 85025; 85049; 85610; 85670; 85730; 86592; 86703; 86850; 86870; 86900; 86901; 86902; 86920; 87040-91; 87070; 87081; 87086; 87340; 89220; 90935; 92523; 92526; 92610; 92611; 93005; 93306; 93308; 93312; 93880; 93931; 93970; 94002; 94003; 94640; 94664; 94770; 96365; 96375; 97110; 97163; 97167; 97530; 97535; 99291-25; A9503